=== PATIENT | female | born 1960 | race Caucasian/White ===

== ENCOUNTER 2019-08-19 08:37 | Outpatient (CLI) | payer OTHER | END 2019-08-19 08:40 | disposition home or self-care (01) | LOC: RAD 08:37 | DX: E04.8 Other specified nontoxic goiter (principal); E06.3 Autoimmune thyroiditis; E04.1 Nontoxic single thyroid nodule ==

== ENCOUNTER 2022-06-03 12:33 | Emergency (ER) | payer OTHER ==
[~2022-06-03] VITALS: Ht 160 cm; Wt 98.0 kg
[2022-06-03] MEDS ORDERED: TOPROL XL50 M1 PO (13:18)
[2022-06-03] MEDS ORDERED: AVALIDE 300-121 EACH PO (13:18)
[2022-06-03] MEDS ORDERED: SYNTHROID75 MCG PO (13:19)
[2022-06-03] MEDS ORDERED: CLONAZEPAM2 M1 PO (13:19)
== END 2022-06-04 02:56 | disposition home or self-care (01) ==
LOC: ER 12:33
DX: R10.9 Unspecified abdominal pain (principal); E03.9 Hypothyroidism, unspecified; I10 Essential (primary) hypertension
CPT/HCPCS: 36415; 74177; Q9965